=== PATIENT | female | born 1950 | race Caucasian/White ===

== ENCOUNTER → 2017-12-23 | Outpatient (CLI) | payer OTHER | END | disposition home or self-care (01) | LOC: KCIC 14:53 | DX: M25.762 Osteophyte, left knee (principal) | CPT/HCPCS: 73562 ==

== ENCOUNTER → 2018-06-04 | Outpatient (CLI) | payer OTHER ==
--- NOTE | 2018-06-04 18:12 | KCIC ---
Three-view left wrist radiographs 06/04/2018 CLINICAL HISTORY: Left wrist pain. Frequent falls. PA, lateral and oblique digital radiographs of the left wrist were obtained. A bony density is seen adjacent to the lateral aspect of the scaphoid bone which could represent an old avulsion type fracture. No acute fracture or dislocation of the left wrist is definitely seen. 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 Mild degenerative changes are seen involving the radiocarpal joint. Moderate degenerative changes are seen involving the radial aspect of the mid carpal joint. IMPRESSION: Degenerative changes are seen involving the left wrist as outlined above. No definite acute fracture or dislocation of the left wrist is seen. Electronically signed by: Ruddy Bahena MD (06/04/2018 6:08 PM) [id number]
== END | disposition home or self-care (01) ==
LOC: KCIC 12:19
PROVIDERS: ATTEND Physician Assistant Medical
DX: M19.032 Primary osteoarthritis, left wrist (principal); Z91.81 History of falling
CPT/HCPCS: 73110